=== PATIENT | male | born 1945 | race Caucasian/White ===

== ENCOUNTER 2018-05-10 06:54 | Day surgery (SDC) | payer MEDICARE ==
[~2018-05-10] VITALS: Ht 182.9 cm; Wt 93.7 kg
[~2018-05-10 06:54] MED LIST: AMLO10; AMLO5 PO; Aspir 8181 MG PO; CHOL10002 PO; ENAL20 PO; FISH1000 PO; LOSA25; LOSA25 PO; Multi-Day Vita1 EACH PO; [UNRECOGNIZED DRUG - REMARK]
[2018-05-10] MEDS ORDERED: Lipitor20 MG PO (07:16)
== END 2018-05-10 08:45 | disposition home or self-care (01) ==
LOC: ORSCSDS 06:54
PROVIDERS: Surgery
PROC: 0DJD8ZZ Inspection of Lower Intestinal Tract, Via Natural or Artificial Opening Endoscopic (ICD-10-PCS; principal; 2018-05-10 08:00)
DX: Z86.010 Personal history of colon polyps (principal); K57.30 Diverticulosis of large intestine without perforation or abscess without bleeding; I10 Essential (primary) hypertension; Z87.891 Personal history of nicotine dependence; Z79.899 Other long term (current) drug therapy; Z79.82 Long term (current) use of aspirin
CPT/HCPCS: J0330; J1980; J2405; J7120

== ENCOUNTER 2025-03-24 15:30 | Emergency (ER) | payer MEDICARE ==
[~2025-03-24] VITALS: Ht 182.9 cm; Wt 74.9 kg
[~2025-03-24 15:30] MED LIST changes: +ALBU2.5V5 INH; +AMOCLA875 PO; +ASPI81CH PO; -CHOL10002 PO; +Lipitor20 MG PO; -Multi-Day Vita1 EACH PO; +VISBIOME 112.51 EACH PO; +VITAMIN D31000 UNI1 PO; +Vitamin and Mi1 EACH PO
[2025-03-24 15:59] LABS: BASOPHILS ABSOLUTE AUTO 0.08 K/mm3 (0.00-0.23); BASOPHILS PERCENT AUTO 1 % (0-2); EOSINOPHILS ABSOLUTE AUTO 0.78 K/mm3 (0.00-0.68); EOSINOPHILS PERCENT AUTO 8 % (0-6); Hematocrit 38.8 % (37.0-53.0); IMMATURE GRAN ABSOLUTE AUTO 0.03 K/mm3 (0.00-0.10); IMMATURE GRAN PERCENT AUTO 0 % (0-1); LYMPHOCYTES ABSOLUTE AUTO 1.84 K/mm3 (0.84-5.20); LYMPHOCYTES PERCENT AUTO 19 % (21-46); MONOCYTES ABSOLUTE AUTO 1.05 K/mm3 (0.16-1.47); MONOCYTES PERCENT AUTO 11 % (4-13); Mean Corpuscular HGB 30.9 pg (26.0-34.0); Mean Corpuscular HGB Conc 33.5 g/dL (31.5-36.5); Mean Corpuscular Volume 92 fL (80-100); Mean Platelet Volume 9.6 fL (9.1-12.4); NEUTROPHILS ABSOLUTE AUTO 5.74 K/mm3 (1.96-9.15); NEUTROPHILS PERCENT AUTO 60 % (41-73); Platelet Count 271 K/mm3 (150-400); RDW Coefficient Variation 14.6 % (11.7-14.2); RDW Standard Deviation 49.2 fL (35.1-46.3); Red Blood Cell Count 4.21 M/mm3 (4.30-5.90); White Blood Cell Count 9.52 K/mm3 (4.00-11.30)
[2025-03-24] MEDS ORDERED: Aspirin 325 MG Tab PO ONE (16:20)
[2025-03-24 16:46] LABS: Albumin, Blood 3.2 g/dL (3.4-5.0); Bilirubin, Total 0.3 mg/dL (0.1-1.0); Bun/Creatinine Ratio 31.6 (12.0-20.0); Calcium, Blood 8.6 mg/dL (8.5-10.1); Creatinine, Blood 0.51 mg/dL (0.60-1.20); Globulin, Blood 3.3 g/dL (2.2-4.0); Potassium, Blood 4.5 mmol/L (3.5-5.5); Total Protein, Blood 6.5 g/dL (6.4-8.2)
[2025-03-24] MEDS ORDERED: Tenecteplase 50 MG / Kit IV ONE ×2 (17:25→17:40)
[2025-03-24] MEDS ORDERED: NS 1,000 ML IV SCH (18:05)
[2025-03-24 18:45] VITALS: BP 104/61
== END 2025-03-24 19:18 | disposition short-term general hospital (02) ==
LOC: ER 15:30
PROVIDERS: Student in an Organized Health Care Education/Training Program
DX: I63.9 Cerebral infarction, unspecified (principal); Z88.5 Allergy status to narcotic agent; Z79.82 Long term (current) use of aspirin; Z79.899 Other long term (current) drug therapy; Z79.2 Long term (current) use of antibiotics; Z87.891 Personal history of nicotine dependence
CPT/HCPCS: 70450; 70496; 70498; 71045; 80053; 82947; 85025; 93005; 93010; 96361; 96374; 99285-25; A9270; J3101; J7030; Q9967

== ENCOUNTER 2025-04-11 12:09 | Emergency (ER) | payer MEDICARE ==
[~2025-04-11] VITALS: Ht 182.9 cm; Wt 65.8 kg
[2025-04-11 13:16] VITALS: BP 108/70
== END 2025-04-11 14:10 | disposition home or self-care (01) ==
LOC: ER 12:09
DX: Z46.59 Encounter for fitting and adjustment of other gastrointestinal appliance and device (principal); Z79.899 Other long term (current) drug therapy; Z79.82 Long term (current) use of aspirin; Z87.891 Personal history of nicotine dependence
CPT/HCPCS: 99282

== ENCOUNTER 2025-05-11 16:38 | Inpatient (IN) | payer OTHER, MEDICARE ==
[~2025-05-11] VITALS: Ht 182.9 cm; Wt 76.8 kg
[~2025-05-11 16:38] MED LIST changes: -ASPI81CH PO; +ASPI81CH PT; +ATORVASTATIN CA80 M1 PT; +IPRAT-ALBUT 0.5-3 ML INH; -LOSA25 PO; +LOSA25 PT
[2025-05-11 16:49] LABS: Base Excess Venous 6.8 mmol/L; Bicarbonate Venous 28.2 mmol/L (24.0-30.0)
[2025-05-11] MEDS ORDERED: Acetaminophen650 M1 PT (16:57)
[2025-05-11 16:58] LABS: BASOPHILS ABSOLUTE AUTO 0.13 K/mm3 (0.00-0.23); BASOPHILS PERCENT AUTO 0 % (0-2); EOSINOPHILS PERCENT AUTO 0 % (0-6); Hematocrit 39.7 % (37.0-53.0); Hemoglobin 13.3 g/dL (13.5-17.5); IMMATURE GRAN ABSOLUTE AUTO 0.55 K/mm3 (0.00-0.10); IMMATURE GRAN PERCENT AUTO 1 % (0-1); LYMPHOCYTES ABSOLUTE AUTO 0.34 K/mm3 (0.84-5.20); LYMPHOCYTES PERCENT AUTO 1 % (21-46); MONOCYTES ABSOLUTE AUTO 0.57 K/mm3 (0.16-1.47); MONOCYTES PERCENT AUTO 1 % (4-13); Mean Corpuscular HGB 30.7 pg (26.0-34.0); Mean Corpuscular HGB Conc 33.5 g/dL (31.5-36.5); Mean Corpuscular Volume 92 fL (80-100); Mean Platelet Volume 10.1 fL (9.1-12.4); NEUTROPHILS ABSOLUTE AUTO 47.08 K/mm3 (1.96-9.15); NEUTROPHILS PERCENT AUTO 97 % (41-73); Platelet Count 400 K/mm3 (150-400); RDW Standard Deviation 47.3 fL (35.1-46.3); Red Blood Cell Count 4.33 M/mm3 (4.30-5.90); White Blood Cell Count 48.67 K/mm3 (4.00-11.30)
[2025-05-11] MEDS ORDERED: Acetaminophen650 M1 PR (16:59)
[2025-05-11] MEDS ORDERED: BANATROL PLUS1 EAC1 PT (17:00)
[2025-05-11] MEDS ORDERED: BISA10S PR (17:01)
[2025-05-11] MEDS ORDERED: MIRALAX1714 PT (17:02)
[2025-05-11] MEDS ORDERED: Milk Of Ma400 MG/5 M PT (17:02)
[2025-05-11] MEDS ORDERED: Piperacillin/Tazobactam Sod 4.5 GM in NS 100 ML IV ONE (17:15)
[2025-05-11 17:25] LABS: Albumin, Blood 2.2 g/dL (3.4-5.0); Albumin/Globulin Ratio 0.5 (0.8-1.8); Bilirubin, Total 0.7 mg/dL (0.1-1.0); Bun/Creatinine Ratio 42.1 (12.0-20.0); Calcium, Blood 8.5 mg/dL (8.5-10.1); Creatinine, Blood 0.57 mg/dL (0.60-1.20); Globulin, Blood 4.1 g/dL (2.2-4.0); Potassium, Blood 4.3 mmol/L (3.5-5.5); Total Protein, Blood 6.3 g/dL (6.4-8.2)
[2025-05-11 18:45] LABS: Influenza A, PCR NEGATIVE (NEGATIVE); Influenza B, PCR NEGATIVE (NEGATIVE); Resp Syncytial Virus, PCR NEGATIVE (NEGATIVE); SARS-Cov-2 (COVID-19) PCR, MMC NEGATIVE (NEGATIVE)
[2025-05-11] MEDS ORDERED: Lactated Ringer's 1,000 ML IV SCH (18:55)
[2025-05-11] MEDS ORDERED: Ipratropium/Albuterol SulF 2.5-0.5MG/3 ML Amp INH SCH (18:55)
[2025-05-11] MEDS ORDERED: Lactobacil 2-S.Thermo-Bifido 1 1 Cap PT SCH (21:00)
[2025-05-11 21:56] VITALS: BP 131/71
[2025-05-11 23:38] VITALS: BP 104/56
[2025-05-12 03:59] LABS: Hematocrit 34.4 % (37.0-53.0); Hemoglobin 11.8 g/dL (13.5-17.5); Mean Corpuscular HGB 31.8 pg (26.0-34.0); Mean Corpuscular HGB Conc 34.3 g/dL (31.5-36.5); Mean Corpuscular Volume 93 fL (80-100); Mean Platelet Volume 10.7 fL (9.1-12.4); Platelet Count 284 K/mm3 (150-400); RDW Coefficient Variation 14.2 % (11.7-14.2); RDW Standard Deviation 47.7 fL (35.1-46.3); Red Blood Cell Count 3.71 M/mm3 (4.30-5.90); White Blood Cell Count 43.33 K/mm3 (4.00-11.30)
[2025-05-12 04:21] LABS: Albumin, Blood 1.9 g/dL (3.4-5.0); Albumin/Globulin Ratio 0.5 (0.8-1.8); Bilirubin, Total 0.7 mg/dL (0.1-1.0); Calcium, Blood 8.6 mg/dL (8.5-10.1); Creatinine, Blood 0.58 mg/dL (0.60-1.20); Globulin, Blood 3.6 g/dL (2.2-4.0); Magnesium, Blood 2.1 mg/dL (1.6-2.4); Phosphorus, Blood 3.5 mg/dL (2.5-4.9); Potassium, Blood 4.3 mmol/L (3.5-5.5); Total Protein, Blood 5.5 g/dL (6.4-8.2)
[2025-05-12 04:53] LABS: BAND PERCENT MAN 20 % (0-8); BASOPHILS PERCENT MAN 0 % (0-2); EOSINOPHILS PERCENT MAN 0 % (0-6); MONOCYTES ABSOLUTE MAN 0.86 K/mm3 (0.16-1.47); MONOCYTES PERCENT MAN 2 % (4-13); NEUTROPHILS ABSOLUTE MAN 42.46 K/mm3 (1.96-9.15); SEG NEUTROPHILS PERCENT MAN 78 % (41-73); TOTAL CELLS COUNTED 100
[2025-05-12 05:00] VITALS: BP 119/63
[2025-05-12] MEDS ORDERED: Vancomycin HCL 2,000 MG in NS 500 ML IV ONE (08:10)
[2025-05-12 08:18] VITALS: BP 114/60
[2025-05-12] MEDS ORDERED: Nystatin 100,000 Unit/GM Ointment 15 GM TOP SCH (09:00)
[2025-05-12] MEDS ORDERED: Enoxaparin 40 MG/0.4 ML SYR SC SCH (09:00)
[2025-05-12 11:19] VITALS: BP 119/52
[2025-05-12] MEDS ORDERED: Piperacillin/Tazobactam Sod 4.5 GM in NS 100 ML IV SCH ×2 (15:00)
[2025-05-12 15:36] VITALS: BP 125/57
--- NOTE | 2025-05-12 16:03 | NUR ---
ROUNDED ON PT. HE WAS ASLEEP DRUING MY ROUNDS AND NO FAMILY AT BEDSIDE. REQUEST FROM STAFF FOR CONTINUED EDUCATION OF DISEASE PROCESS AND PROGNOSIS.
[2025-05-12] MEDS ORDERED: Albuterol 2.5 MG/3 ML VIAL INH PRN (17:25)
--- NOTE | 2025-05-12 18:44 | NUR ---
SHIFT SUMMARY: PT SLEEPS OFTEN, WAKES EASILY TO STAFF IN ROOM, WILL ANSWER YES/NO QUESTIONS, ORIENTED TO SELF, COOPERATIVE W/CARE, ASSISTS WITH TURNS, GENERALLY WEAK. PT DENIES SOB, RESPIRATIONS TACHYPNEIC, O2 SATS MAINTAINED >90% ON CPAP OR 6L VIA HFNC. PT DENIES CHEST PAIN, SR ON MONITOR W/RATE MOSTLY 70s-90s. TUBE FEEDINGS ADMINISTERED PER ORDERS, PT TOLERATING WELL. PT HAS BEEN INCONTINENT OF STOOL AND URINE, MALE PUREWICK APPLIED IN ATTEMPT TO KEEP PERIAREA DRY (AREA IS RED, MEDICATED PER ORDERS), ATTENDS IN PLACE. ORAL CARE Q4H, REPOSITIONING Q2H. MEPILEX CHANGED NEEDED TO COCCYX. PT's SPOUSE TO BEDSIDE AND UPDATED ON PT STATUS. IV ABX INFUSING AT THIS TIME.
[2025-05-12 20:00] VITALS: BP 113/57
[2025-05-12] MEDS ORDERED: Vancomycin HCL 1,250 MG in NS 250 ML IV SCH (21:00)
[2025-05-13] VITALS (7 sets, daily range): BP systolic 101–140; BP diastolic 54–104
[2025-05-13] MEDS ORDERED: Piperacillin/Tazobactam Sod 4.5 GM in NS 100 ML IV SCH
[2025-05-13 04:08] LABS: BASOPHILS ABSOLUTE AUTO 0.04 K/mm3 (0.00-0.23); BASOPHILS PERCENT AUTO 0 % (0-2); EOSINOPHILS ABSOLUTE AUTO 0.01 K/mm3 (0.00-0.68); EOSINOPHILS PERCENT AUTO 0 % (0-6); Hematocrit 31.7 % (37.0-53.0); Hemoglobin 10.6 g/dL (13.5-17.5); IMMATURE GRAN ABSOLUTE AUTO 0.21 K/mm3 (0.00-0.10); IMMATURE GRAN PERCENT AUTO 1 % (0-1); LYMPHOCYTES ABSOLUTE AUTO 0.32 K/mm3 (0.84-5.20); LYMPHOCYTES PERCENT AUTO 1 % (21-46); MONOCYTES ABSOLUTE AUTO 0.61 K/mm3 (0.16-1.47); MONOCYTES PERCENT AUTO 2 % (4-13); Mean Corpuscular HGB 31.1 pg (26.0-34.0); Mean Corpuscular HGB Conc 33.4 g/dL (31.5-36.5); Mean Corpuscular Volume 93 fL (80-100); Mean Platelet Volume 10.6 fL (9.1-12.4); NEUTROPHILS ABSOLUTE AUTO 26.65 K/mm3 (1.96-9.15); NEUTROPHILS PERCENT AUTO 96 % (41-73); Platelet Count 279 K/mm3 (150-400); RDW Coefficient Variation 14.2 % (11.7-14.2); RDW Standard Deviation 48.4 fL (35.1-46.3); Red Blood Cell Count 3.41 M/mm3 (4.30-5.90); White Blood Cell Count 27.84 K/mm3 (4.00-11.30)
[2025-05-13 04:26] LABS: Bun/Creatinine Ratio 46.5 (12.0-20.0); Calcium, Blood 8.5 mg/dL (8.5-10.1); Creatinine, Blood 0.56 mg/dL (0.60-1.20); Potassium, Blood 4.3 mmol/L (3.5-5.5)
[2025-05-13 04:30] LABS: BAND PERCENT MAN 2 % (0-8); BASOPHILS PERCENT MAN 0 % (0-2); EOSINOPHILS PERCENT MAN 0 % (0-6); LYMPHOCYTES ABSOLUTE MAN 0.83 K/mm3 (0.84-5.20); LYMPHOCYTES PERCENT MAN 3 % (21-46); MONOCYTES ABSOLUTE MAN 0.83 K/mm3 (0.16-1.47); MONOCYTES PERCENT MAN 3 % (4-13); NEUTROPHILS ABSOLUTE MAN 26.16 K/mm3 (1.96-9.15); SEG NEUTROPHILS PERCENT MAN 92 % (41-73); TOTAL CELLS COUNTED 100
--- NOTE | 2025-05-13 07:28 | NUR ---
NOC SHIFT SUMMARY PRIYANKA IS ORIENTED TO SELF/PLACE AND APHASIC, ANSWERS TO YES AND NO QUESTIONS. AT BEDSIDE AT START OF SHIFT AND IN DISCUSSING DYSPHAGIA REPORTS SHE HAS BEEN GIVING PATIENT ICE CHIPS. EDUCATED ON FULL NPO STATUS AND RISK OF ASPIRATION. POOR UNDERSTANDING OF DYPSHAGIA AND WHAT IT IS. NOTIFIED PROVIDER THIS AM - DR GOLDMAN. ALSO DISCUSSED AFLUTTER -- > SR CONVERSION OVERNIGHT. PUREWIC IN PLACE WITH GOOD URINE OUTPUT. BM X1. INCONTINENT. NO COMPLAINTS OF PAIN. TOELRATED TF X1 WELL.
[2025-05-13] MEDS ORDERED: Atorvastatin 40 MG Tab PT SCH (09:00)
[2025-05-13] MEDS ORDERED: Losartan Potassium 25 MG Tab PO SCH (09:00)
[2025-05-13] MEDS ORDERED: Arginine/Glutamine/Calcium Hmb 1 Packet PT SCH (09:00)
[2025-05-13] MEDS ORDERED: Aspirin 81 MG Chew PT SCH (09:00)
--- NOTE | 2025-05-13 10:26 | NUR ---
AM NOTE: PATIENT ALERT TO SELF AND FRIENDS VISITING THIS MORNING AT BEDSIDE. NODDING HEAD YES AND NO TO QUESTIONS. MOVING ALL EXTREMITIES AND HELPING WITH TURNS IN BED. NOD HEAD NO TO PAIN. PHYSICAL THERAPY IN THIS MORNING. PLAN FOR OCCUPATIONAL THERAPY THIS AFTERNOON. Q2 TURNING AND NEEDED. TELE SHOWING SR WITH 1ST DEGREE HB AND PVC'S. HR 70'S. DENIES CHEST PAIN/PRESSURE/PALPITATIONS. PPP. IV ABX INFUSING PER EMAR. TRACE EDEMA NOTED TO BLE. ON CPAP THIS AM AT 12 AND 30% FIO2. TITRATED TO 6L HIGH FLOW NASAL CANNULA AND SATING 93-96%. COARSE LUNG SOUNDS WITH CONGESTED/LOOSE/MOIST COUGH WITH NO SPUTUM PRODUCTION. SUCTION AT BEDSIDE. Q4 ORAL CARE AND NEEDED. POOR ORAL HEALTH WITH BROKEN/CRACKED/MISSING TEETH. DENTAL HYGENIST ORDERS IN PLACE. STRICT NPO WITH BOLUS TUBE FEEDS. G TUBE IN PLACE AND DRESSING CHANGED THIS MORNING. BOWEL TONES PRESENT THROUGHOUT. ATTENDS IN PLACE. PUREWICK TO SUCTION WITH MIGUEL COLORED URINE. RED/FUNGAL LIKE RASH TO BILATERAL GROIN, SCROTUM, BUTTOCK AND RECTAL AREA. CLEANSED AND NYSTATIN CREAM APPLIED THIS AM. FAMILY FRIENDS AT BEDSIDE THIS AM AND PATIENT OPENS EYES AND SMILES AT VISITORS. PATIENT AWAKE FOR A FEW MINUTES AT A TIME BUT QUICKLY FALLS ASLEEP AFTER CARES. CALL LIGHT IN REACH. DENIES NEEDS AT THIS TIME. DR. GOLDMAN TO BEDSIDE THIS AM, THIS RN PRESENT FOR MD LEA. ORDERS FOR PT/OT. THIS RN DISCUSSED AFLUTTER CONVERSION OVERNIGHT AND PATIENT MENTATION.
[2025-05-13] MEDS ORDERED: ZINC OXIDE/PETROLATUM, YELLOW 1 APPLIC/71 GM PASTE TOP PRN (10:50)
--- NOTE | 2025-05-13 12:04 | NUR ---
AFTERNOON VITALS STABLE. PATIENT GETTING BED BATH AND HAD A 8 BEAT RUN OF VTACH. DR. GOLDMAN UPDATED. NONSYMPTOMATIC. AFTERNOON TUBE FEED INFUSING PER TUBE. PATIENT DENIES PAIN AT THIS TIME. MODERATE SIZE LOOSE BOWEL MOVEMENT. CALL LIGHT IN REACH. SITTING UPRIGHT IN BED WITH LEFT HIP FLOATED.
--- NOTE | 2025-05-13 18:11 | NUR ---
SHIFT SUMMARY: NO ACUTE CHANGES. VITAL SIGNS STABLE. REMAINS ON 6L HIGH FLOW, CPAP AT BEDSIDE. SUCTION FREQUENTLY THROUGHOUT THE DAY WELL FREQUENT ORAL CARE. DENIES PAIN. TUBE FEEDS PER G TUBE WELL WATER FLUSHES. 2 LOOSE BOWEL MOVEMENTS. PUREWICK IN PLACE WITH MIGUEL COLORED URINE. IV ABX INFUSED. JOSELIN TO BEDSIDE AND UPDATED BY THIS RN. Q2 TURNING AND NEEDED. COCCYX DRESSING CHANGED THIS SHIFT. CALL LIGHT IN REACH, DENIES NEEDS AT THIS TIME.
[2025-05-13 20:39] LABS: Vancomycin, Trough 14.9 ug/mL (5.0-10.0)
[2025-05-14] VITALS (7 sets, daily range): BP systolic 108–134; BP diastolic 54–60
[2025-05-14 04:40] LABS: BASOPHILS ABSOLUTE AUTO 0.03 K/mm3 (0.00-0.23); BASOPHILS PERCENT AUTO 0 % (0-2); EOSINOPHILS ABSOLUTE AUTO 0.02 K/mm3 (0.00-0.68); EOSINOPHILS PERCENT AUTO 0 % (0-6); Hematocrit 29.5 % (37.0-53.0); Hemoglobin 9.6 g/dL (13.5-17.5); IMMATURE GRAN ABSOLUTE AUTO 0.12 K/mm3 (0.00-0.10); IMMATURE GRAN PERCENT AUTO 1 % (0-1); LYMPHOCYTES ABSOLUTE AUTO 0.44 K/mm3 (0.84-5.20); LYMPHOCYTES PERCENT AUTO 2 % (21-46); MONOCYTES ABSOLUTE AUTO 0.58 K/mm3 (0.16-1.47); MONOCYTES PERCENT AUTO 3 % (4-13); Mean Corpuscular HGB 30.5 pg (26.0-34.0); Mean Corpuscular HGB Conc 32.5 g/dL (31.5-36.5); Mean Corpuscular Volume 94 fL (80-100); Mean Platelet Volume 10.5 fL (9.1-12.4); NEUTROPHILS ABSOLUTE AUTO 18.35 K/mm3 (1.96-9.15); NEUTROPHILS PERCENT AUTO 94 % (41-73); Platelet Count 275 K/mm3 (150-400); RDW Coefficient Variation 14.5 % (11.7-14.2); Red Blood Cell Count 3.15 M/mm3 (4.30-5.90); White Blood Cell Count 19.54 K/mm3 (4.00-11.30)
[2025-05-14 05:03] LABS: Albumin, Blood 1.6 g/dL (3.4-5.0); Albumin/Globulin Ratio 0.4 (0.8-1.8); Bilirubin, Total 0.5 mg/dL (0.1-1.0); Calcium, Blood 8.7 mg/dL (8.5-10.1); Creatinine, Blood 0.49 mg/dL (0.60-1.20); Globulin, Blood 3.7 g/dL (2.2-4.0); Potassium, Blood 3.9 mmol/L (3.5-5.5); Total Protein, Blood 5.3 g/dL (6.4-8.2)
--- NOTE | 2025-05-14 06:52 | NUR ---
PT STABLE THROUGHOUT THE SHIFT WITH VITAL SIGNS EXCEPT SPO2. PT WOULD ACCIDENTLY DISLODGE TUBE FROM CPAP MASK AND PT WAS DESAT RAPIDLY. PT HAS NO OXYGEN RESERVES AND TAKES AWHILE TO RECOVER. O2 BLEED IN ON CPAP INCREASED TO HELP PATIENT RECOVER. PT TOLERATING IV ABX WELL. PT HAS HAD 2 LARGE INCONTINENT, LOOSE BMS THIS SHIFT REQUIRING FULL LINEN AND BRIEF CHANGES. PT SKIN INTACT BUT CONTINUES TO HAVE RASH IN GROIN. PUREWICK IN PLACE. PT HAS HAD GOOD URINARY OUTPUT THIS SHIFT. PT CONTINUES TO BE ABLE TO ANSWER YES/NO QUESTIONS BY NODDING/SHAKING HEAD. PT AOX2-3.
--- NOTE | 2025-05-14 17:52 | NUR ---
PT SUMMARY; NO ACUTE CHANGE FOR THE SHIFT. PULMONOLOGISTS CONSULTED PER FAMILY'S REQUESTS. VITALS HRR SR WITH FHB AND SOME PVC'S, PT HAD 2 EPISODES OF VTACH, MADE AWARE LABS ORDERED, SATS ABOVE 90% ON 4L OF O2, CPAP AT BEDSIDE IF PT NEEDED FOR SLEEP, SBP 120'S, AFEBRILE, AT THE BEDSIDE AFTER LUNCH TIME AND WAS GIVEN UPDATE REGARDING PT'S STATUS. PT ABLE TO WORK WITH OCCUPATIONAL THERAPY ABLE TO GET UP. 1PA FOR TRANSFERS, PT ABLE TO GET UP IN THE RECLINER WITH NO ISSUES. PT HAD MULTIPLE EPISODES OF LOOSE BM'S, DUE TO FORMULA FEED, BROWN IN COLOR, SOFT LOOSE IN CONSISTENCY. TUBE FEEDING TOLERATED WELL. NO OTHER ISSUES ENCOUNTERED WILL REPORT TO ONCOMING SHIFT
[2025-05-14 19:33] LABS: Bun/Creatinine Ratio 58.5 (12.0-20.0); Calcium, Blood 8.7 mg/dL (8.5-10.1); Creatinine, Blood 0.58 mg/dL (0.60-1.20); Magnesium, Blood 1.9 mg/dL (1.6-2.4); Phosphorus, Blood 3.1 mg/dL (2.5-4.9); Potassium, Blood 3.8 mmol/L (3.5-5.5)
[2025-05-15 04:35] VITALS: BP 144/72
--- NOTE | 2025-05-15 06:32 | NUR ---
PT ESSENTIAL STABLE THROUGHOUT THE SHIFT. PT MENTATION REMAINS STABLE AOX3, ABLE TO ANSWER YES/NO QUESTIONS NODDING AND SHAKING HEAD. VITAL SIGNS STABLE. PT ON 4L O2 NC. PT DID START TO DESAT WHILE SLEEPING AND WAS PLACED ON CPAP AND SATS IMPROVED AGAIN. PT DID HAVE INCONTINENT BOWEL MOVEMENT AND FULL BRIEF/LINEN CHANGE DONE. PUREWICK IN PLACE AND PT HAD GOOD URINARY OUTPUT. URINE REMAINS MIGUEL IN COLOR AND HAZY. PT REPOSITIONED FREQUENTLY. PT DID SIT ON SIDE OF BED ONCE AND SET OFF BED ALARM. BED IN LOWEST POSITION. BED BRAKES AND EXIT ALARM ON. CALL LIGHT AND BEDSIDE TABLE IN REACH. PT TOLERATING IV ABX WELL.
[2025-05-15 07:19] VITALS: BP 149/70
[2025-05-15 08:24] LABS: BASOPHILS ABSOLUTE AUTO 0.03 K/mm3 (0.00-0.23); BASOPHILS PERCENT AUTO 0 % (0-2); EOSINOPHILS ABSOLUTE AUTO 0.18 K/mm3 (0.00-0.68); EOSINOPHILS PERCENT AUTO 2 % (0-6); Hematocrit 28.8 % (37.0-53.0); Hemoglobin 9.5 g/dL (13.5-17.5); IMMATURE GRAN ABSOLUTE AUTO 0.05 K/mm3 (0.00-0.10); IMMATURE GRAN PERCENT AUTO 0 % (0-1); LYMPHOCYTES ABSOLUTE AUTO 0.53 K/mm3 (0.84-5.20); LYMPHOCYTES PERCENT AUTO 5 % (21-46); MONOCYTES ABSOLUTE AUTO 0.64 K/mm3 (0.16-1.47); MONOCYTES PERCENT AUTO 5 % (4-13); Mean Corpuscular HGB 30.5 pg (26.0-34.0); Mean Corpuscular Volume 93 fL (80-100); Mean Platelet Volume 10.1 fL (9.1-12.4); NEUTROPHILS ABSOLUTE AUTO 10.32 K/mm3 (1.96-9.15); NEUTROPHILS PERCENT AUTO 88 % (41-73); Platelet Count 290 K/mm3 (150-400); RDW Coefficient Variation 14.6 % (11.7-14.2); RDW Standard Deviation 49.1 fL (35.1-46.3); Red Blood Cell Count 3.11 M/mm3 (4.30-5.90); White Blood Cell Count 11.75 K/mm3 (4.00-11.30)
[2025-05-15 08:43] LABS: Anion Gap 6 mmol/L (3-11); Blood Urea Nitrogen 29 mg/dL (8-24); CO2, Blood 33 mmol/L (21-32); Calcium, Blood 8.3 mg/dL (8.5-10.1); Chloride, Blood 106 mmol/L (98-108); Creatinine, Blood 0.57 mg/dL (0.60-1.20); Glomerular Filtration Rate 98 (60-); Glucose, Blood 88 mg/dL (70-99); Potassium, Blood 3.9 mmol/L (3.5-5.5); Sodium, Blood 141 mmol/L (136-145); Vancomycin, Trough 13.9 ug/mL (5.0-10.0)
[2025-05-15 11:35] VITALS: BP 129/59
[2025-05-15 16:19] VITALS: BP 120/48
--- NOTE | 2025-05-15 17:47 | NUR ---
PT SUMMARY; NO ACUTE CHANGE FOR THE SHIFT, VITALS HRR SR WITH SOME EPISODES OF CONSISTENT PVC'S 70'S, SBP 120'S, SATS ABOVE 90% ON 4L OF O2 CPAP AT THE BEDSIDE WHEN HE'S SLEEPING, AFEBRILE. TUBE FEEDING QID PER ORDERS TOLERATED WELL, SPOKE TO TOUCH UP CARVER ABOUT 'S CONCERN WITH THE FORMULA THAT CAUSES LOOSE BM'S NO NEW ORDERS AT THIS TIME. PT ABLE TO PARTICIPATE WITH PT/OT THIS SHIFT PT WAS UP IN THE RECLINER AFTER LUNCH TIME. NOTICED STAGE 2 PRESSURE ULCER WAS GETTING BIGGER NEW PHOTOS IN CHART FAMILY MADE AWARE. INFLATABLE AIR MATTRESS IN PLACE. PT REPOSITIONE Q2 HRS . BARRIER CREAM APPLIED AROUND THE AREA NYSTAIN OINTMENT ON GROIN. PALLIATIVE CARE NURSE AND DR ENGLISH WAS IN THE ROOM WITH THE FAMILY TO TALK ABOUT PLAN OF CARE, ABOUT HOSPICE AND POSSIBLE TRACHEOSTOMY. FAMILY IS STILL NEEDING SOME TIME TO DECIDE AND IS ACTUALLY REQUESTING ANOTHER PULMONOLIGIST FOR A SECOND OPINION, DR GOLDMAN MADE AWARE AND RECOMMENDED THAT IT COULD HAPPEN OUTPATIENT. PT RESTING AT THIS TIME, ORAL CARE PROVIDED Q4HRS AND FREQUENT SUCTIONING. NO OTHER ISSUES REPORTED BED ALARM IN PLACE CALL LIGHTS IN REACH WILL REPORT TO ONCOMING SHIFT
--- NOTE | 2025-05-15 18:12 | NUR ---
MET WITH PT, JOSELIN AND ADULT DAUGHTER ALONG WITH DR. ENGLISH, WHO DISCUSSED TRACH WITH THEM, INCLUDING DISCUSSION OF RISKS AND BENEFITS. PT HAS HX OF DEMENTIA X'S 10 YEARS AND HAS BEGUN ASPIRATING REGULARLY. HE ALREADY HAS A PEG TUBE IN PLACE FOR THIS REASON. DR. ENGLISH STATED IT WAS GOING TO EITHER BE TRACH, OR HOSPICE. AFTER THE DISCUSSION, JOSELIN BEGAN TO CRY. SHE PLANS TO DISCUSS WITH BOTH DAUGHTERS WELL THE PATIENT, AND WE WILL MEET AGAIN TOMORROW.
[2025-05-15 20:10] VITALS: BP 139/60
[2025-05-16 00:02] VITALS: BP 128/65
[2025-05-16 04:17] VITALS: BP 157/86
[2025-05-16 04:32] LABS: BASOPHILS ABSOLUTE AUTO 0.04 K/mm3 (0.00-0.23); BASOPHILS PERCENT AUTO 0 % (0-2); EOSINOPHILS ABSOLUTE AUTO 0.53 K/mm3 (0.00-0.68); EOSINOPHILS PERCENT AUTO 4 % (0-6); Hematocrit 30.4 % (37.0-53.0); Hemoglobin 9.7 g/dL (13.5-17.5); IMMATURE GRAN ABSOLUTE AUTO 0.08 K/mm3 (0.00-0.10); IMMATURE GRAN PERCENT AUTO 1 % (0-1); LYMPHOCYTES PERCENT AUTO 4 % (21-46); MONOCYTES ABSOLUTE AUTO 0.69 K/mm3 (0.16-1.47); MONOCYTES PERCENT AUTO 6 % (4-13); Mean Corpuscular HGB 30.1 pg (26.0-34.0); Mean Corpuscular HGB Conc 31.9 g/dL (31.5-36.5); Mean Corpuscular Volume 94 fL (80-100); Mean Platelet Volume 10.4 fL (9.1-12.4); NEUTROPHILS ABSOLUTE AUTO 10.56 K/mm3 (1.96-9.15); NEUTROPHILS PERCENT AUTO 85 % (41-73); Platelet Count 310 K/mm3 (150-400); RDW Coefficient Variation 14.5 % (11.7-14.2); RDW Standard Deviation 49.8 fL (35.1-46.3); Red Blood Cell Count 3.22 M/mm3 (4.30-5.90)
[2025-05-16 04:57] LABS: Bun/Creatinine Ratio 58.2 (12.0-20.0); Calcium, Blood 8.4 mg/dL (8.5-10.1); Creatinine, Blood 0.48 mg/dL (0.60-1.20)
--- NOTE | 2025-05-16 06:15 | NUR ---
PT STABLE THROUGHOUT THE SHIFT, NO SIGNIFICANT EVENTS. PT REMAINS AOX2-3 BUT IS ABLE TO MAKE NEEDS KNOWN AND ANSWER YES/NO QUESTIONS. PT ON 4L O2 BY NC UNLESS SLEEPING AND THEN IS ON CPAP WITH 6L BLEED IN, SATS >92%. PT CONTINUES TO BE INCONTINENT OF BOTH BOWEL AND BLADDER. FULL LINEN/BRIEF CHANGES DARLENE THIS SHIFT. ORAL CARE PERFORMED Q4, THICK, TENACIOUS SECRETIONS REMOVED BY BOTH SWAB AND SUCTIONING. BED ALARM ON, CALL LIGHT IN REACH. BED IN LOWEST POSITION, BRAKES ON, UPPER SIDE RAILS UP. PT TOLERATING CPAP WELL, GEL NASAL PAD IN PLACE. PT CONTINUES TO HAVE INCREASED ECTOPY, ELECTROLYTES WNL.
[2025-05-16 07:39] VITALS: BP 139/55
[2025-05-16 15:48] VITALS: BP 140/72
--- NOTE | 2025-05-16 18:07 | NUR ---
PT SUMMARY; NO ACUTE CHANGE FOR THE SHIFT, PT TRANSITIONED TO MEDICAL STATUS NO TELE. VITALS REMAINED STABLE. TUBE FEEDING BOLUS TOLERATING WELL, STILL HS LOOSE BMS. NO FAMILY CAME BY TO VISIT TODAY. PALLIATIVE CARE CARE ABLE TO UPDATE THIS RN REGARDING FAMILY'S CURRENT WISHES THE OTHER DAUGHTER DOES NOT WANT TO PURSUE TRACH PLACEMENT AWAITING FOR CONFIRMATION IN AM, FOR POSSIBLE DC TO REHAB. PT REFUSED TO GET OUT OF BED WHEN ASKED MULTIPLE TIMES FOR THE SHIFT, PT HAS BEEN ASLEEP MOST OF THE TIME BUT IS ABLE TO MOVE INDEPENDENTLY IN BED AND IS ABLE TO WAKE UP WITH VERBAL STIMULI. REMAINED ON 4L OF O2, CPAP NEEDED. PUREWICK IN PLACE. NO OTHER ISSUES ENCOUNTERED WILL REPORT TO ONCOMING SHIFT
[2025-05-16 21:50] VITALS: BP 121/57
[2025-05-16] MEDS ORDERED: NS 250 ML IV PRN (22:00)
[2025-05-16 23:09] VITALS: BP 148/58
--- NOTE | 2025-05-16 23:51 | NUR ---
SHIFT SUMMARY NO ACUTE CHANGES. IV TUBING AND TUBE FEEDING SET CHANGES AND LABELED. PUREWICK IN PLACE. PT REFUSED CPAP AT MIDNIGHT. Q2 TURNS
[2025-05-17 04:57] LABS: BASOPHILS ABSOLUTE AUTO 0.03 K/mm3 (0.00-0.23); BASOPHILS PERCENT AUTO 0 % (0-2); EOSINOPHILS ABSOLUTE AUTO 0.68 K/mm3 (0.00-0.68); EOSINOPHILS PERCENT AUTO 6 % (0-6); Hematocrit 28.3 % (37.0-53.0); IMMATURE GRAN PERCENT AUTO 1 % (0-1); LYMPHOCYTES PERCENT AUTO 5 % (21-46); MONOCYTES ABSOLUTE AUTO 0.67 K/mm3 (0.16-1.47); MONOCYTES PERCENT AUTO 6 % (4-13); Mean Corpuscular HGB 30.4 pg (26.0-34.0); Mean Corpuscular HGB Conc 31.8 g/dL (31.5-36.5); Mean Corpuscular Volume 96 fL (80-100); Mean Platelet Volume 10.7 fL (9.1-12.4); NEUTROPHILS ABSOLUTE AUTO 8.84 K/mm3 (1.96-9.15); NEUTROPHILS PERCENT AUTO 82 % (41-73); Platelet Count 334 K/mm3 (150-400); RDW Coefficient Variation 14.6 % (11.7-14.2); RDW Standard Deviation 50.4 fL (35.1-46.3); Red Blood Cell Count 2.96 M/mm3 (4.30-5.90); White Blood Cell Count 10.82 K/mm3 (4.00-11.30)
[2025-05-17 05:35] LABS: Albumin, Blood 1.6 g/dL (3.4-5.0); Albumin/Globulin Ratio 0.4 (0.8-1.8); Bilirubin, Total 0.4 mg/dL (0.1-1.0); Bun/Creatinine Ratio 51.1 (12.0-20.0); Calcium, Blood 8.3 mg/dL (8.5-10.1); Creatinine, Blood 0.53 mg/dL (0.60-1.20); Globulin, Blood 3.9 g/dL (2.2-4.0); Potassium, Blood 4.1 mmol/L (3.5-5.5); Total Protein, Blood 5.5 g/dL (6.4-8.2)
[2025-05-17 08:09] VITALS: BP 137/71
[2025-05-17] MEDS ORDERED: Banana Flakes/Tos 1 EA Powder Pack PO SCH (09:00)
--- NOTE | 2025-05-17 09:15 | NUR ---
CALL TO DR. GOLDMAN. PT HAD EXTENDED RUN OF PVCs ON TELE. ORDERED MAGNESIUM AND PHOSPHOROUS DRAWS. ORDERS INPUT.
[2025-05-17 09:41] LABS: Magnesium, Blood 1.9 mg/dL (1.6-2.4); Phosphorus, Blood 3.2 mg/dL (2.5-4.9)
[2025-05-17 16:38] VITALS: BP 130/95
--- NOTE | 2025-05-17 16:48 | NUR ---
SHIFT SUMMARY. SHIFT HAS BEEN MOSTLY UNREMARKABLE, PT CONDITION UNCHANGED THROUGHOUT SHIFT. HAVE BEEN ABLE TO TITRATE SUPPLEMENTAL O2 DOWN TO 3 L VIA NC THROUGHOUT SHIFT DESPITE NEEDING MUCH 5 L OVERNIGHT PER HYPERBARIC TECH RN. PT HAS NOT APPEARED TO EXPERIENCE ACUTE PAIN THUS FAR AND HAS BEEN ABLE TO REST COMFORTABLY THROUGHOUT SHIFT. BOLUS FEEDINGS QID, THIRD OF DAY RUNNING NOW. Q2 HOUR REPOSITIONING. PT CONTINUES TO HAVE LOOSE, URGENT BM AFTER TUBE FEEDINGS ALTHOUGH THEY APPEAR TO BE LESS FREQUENT THAN IN PAST, POSSIBLY IN RELATION TO NEWLY ORDERED BANANA FLAKES. ABX ADMINISTERED ON TIME AND WITHOUT DIFFICULTY. PUREWICK IN PLACE THROUGHOUT SHIFT, WORKING INTENDED. SHIFT OTHERWISE UNREMARKABLE. BED LOCKED IN LOWEST POSITION. CALL LIGHT LEFT WITHIN REACH. BED ALARM ACTIVE. CONTINUING TO MONITOR.
[2025-05-17 21:18] VITALS: BP 139/69
[2025-05-17 23:36] VITALS: BP 139/61
--- NOTE | 2025-05-18 00:24 | NUR ---
SHIFT SUMMARY- NO ACUTE CHANGES PT REMAINS ON 5LNC, REFUSING BIPAP X2 NIGHTS IN A ROW. BM IS THICKENING AFTER STARTING BANATROL.
[2025-05-18 07:54] VITALS: BP 159/71
[2025-05-18 10:44] LABS: BASOPHILS ABSOLUTE AUTO 0.05 K/mm3 (0.00-0.23); BASOPHILS PERCENT AUTO 1 % (0-2); EOSINOPHILS ABSOLUTE AUTO 0.47 K/mm3 (0.00-0.68); EOSINOPHILS PERCENT AUTO 5 % (0-6); Hematocrit 28.4 % (37.0-53.0); Hemoglobin 9.1 g/dL (13.5-17.5); IMMATURE GRAN ABSOLUTE AUTO 0.09 K/mm3 (0.00-0.10); IMMATURE GRAN PERCENT AUTO 1 % (0-1); LYMPHOCYTES ABSOLUTE AUTO 0.61 K/mm3 (0.84-5.20); LYMPHOCYTES PERCENT AUTO 6 % (21-46); MONOCYTES ABSOLUTE AUTO 0.42 K/mm3 (0.16-1.47); MONOCYTES PERCENT AUTO 4 % (4-13); Mean Corpuscular HGB 30.5 pg (26.0-34.0); Mean Corpuscular Volume 95 fL (80-100); Mean Platelet Volume 10.1 fL (9.1-12.4); NEUTROPHILS ABSOLUTE AUTO 7.95 K/mm3 (1.96-9.15); NEUTROPHILS PERCENT AUTO 83 % (41-73); Platelet Count 273 K/mm3 (150-400); RDW Coefficient Variation 14.6 % (11.7-14.2); RDW Standard Deviation 50.4 fL (35.1-46.3); Red Blood Cell Count 2.98 M/mm3 (4.30-5.90); White Blood Cell Count 9.59 K/mm3 (4.00-11.30)
[2025-05-18 11:12] LABS: Bun/Creatinine Ratio 50.9 (12.0-20.0); Calcium, Blood 8.2 mg/dL (8.5-10.1); Creatinine, Blood 0.51 mg/dL (0.60-1.20)
[2025-05-18 15:54] VITALS: BP 151/61
[2025-05-18 16:01] VITALS: BP 151/61
--- NOTE | 2025-05-18 16:41 | NUR ---
SHIFT SUMMARY. SHIFT HAS BEEN UNREMARKABLE. PT REMAINS NON VERBAL BUT ABLE TO FOLLOW COMMANDS APPROPRIATELY. HAS AT NO POINT DURING SHIFT APPEARED IN PAIN, DENIES ANY ACUTE PAIN. REPOSITIONED Q2. O2 DEMANDS HAVE SOMEWHAT FLUCTUATED BETWEEN 3-6 L O2 VIA MASK. VITALS STABLE. ABX ADMINISTERED ON TIME AND WITHOUT DIFFICULTY. BOLUS FEEDINGS QID, 3 DELIVERED THUS FAR. BLOOD SUGAR HAS BEEN STABLE. HAS NOT GOTTEN OUT OF BED TODAY, HAS BEEN VERY SOMNOLENT THROUGHOUT SHIFT. BED LOCKED IN LOWEST POSITION. CALL LIGHT LEFT WITHIN REACH. CONTINUING TO MONITOR.
--- NOTE | 2025-05-18 19:40 | NUR ---
ASSUMPTION OF CARE REPORT RECIEVED AT BEDSIDE FROM DAY SHIFT RN. PT RESTING IN ROOM AT THIS TIME. NO COMPLAINTS STATED AFTER BEING ASKED YES NO QUESTIONS. WILL CONTINUE TO ASSESS AND MONITOR.
[2025-05-18 20:00] VITALS: BP 132/58
[2025-05-18 21:43] VITALS: BP 132/58
[2025-05-19] VITALS: BP 118/51
[2025-05-19 04:00] VITALS: BP 137/68
[2025-05-19 04:49] LABS: BASOPHILS ABSOLUTE AUTO 0.06 K/mm3 (0.00-0.23); BASOPHILS PERCENT AUTO 1 % (0-2); EOSINOPHILS ABSOLUTE AUTO 0.67 K/mm3 (0.00-0.68); EOSINOPHILS PERCENT AUTO 7 % (0-6); Hematocrit 28.5 % (37.0-53.0); Hemoglobin 9.2 g/dL (13.5-17.5); IMMATURE GRAN PERCENT AUTO 1 % (0-1); LYMPHOCYTES ABSOLUTE AUTO 0.65 K/mm3 (0.84-5.20); LYMPHOCYTES PERCENT AUTO 6 % (21-46); MONOCYTES PERCENT AUTO 5 % (4-13); Mean Corpuscular HGB 30.5 pg (26.0-34.0); Mean Corpuscular HGB Conc 32.3 g/dL (31.5-36.5); Mean Corpuscular Volume 94 fL (80-100); Mean Platelet Volume 10.3 fL (9.1-12.4); NEUTROPHILS ABSOLUTE AUTO 8.38 K/mm3 (1.96-9.15); NEUTROPHILS PERCENT AUTO 81 % (41-73); Platelet Count 281 K/mm3 (150-400); RDW Coefficient Variation 14.6 % (11.7-14.2); RDW Standard Deviation 50.3 fL (35.1-46.3); Red Blood Cell Count 3.02 M/mm3 (4.30-5.90); White Blood Cell Count 10.36 K/mm3 (4.00-11.30)
[2025-05-19 05:19] LABS: Bun/Creatinine Ratio 56.9 (12.0-20.0); Calcium, Blood 8.1 mg/dL (8.5-10.1); Creatinine, Blood 0.49 mg/dL (0.60-1.20); Potassium, Blood 4.3 mmol/L (3.5-5.5)
--- NOTE | 2025-05-19 06:28 | NUR ---
SHIFT SUMMARY PT HAS TOLERATED SHIFT WELL WITH NO SIGNIFICANT EVENTS OVERNIGHT. PT WAS ABLE TO TOLERATE CPAP THROUGH NIGHT. PT ABLE TO ANSWER YES NO QUESTIONS BY SHAKING OR NODDING HEAD. PT HAS NO COMPLAINTS OF PAIN AT THIS TIME. PT APPEARS TO BE RESTING COMFORTABLY IN ROOM. WILL CONTINUE TO MONITOR UNTIL REPORT PASSED TO DAY SHIFT TEAM.
[2025-05-19 08:41] VITALS: BP 137/91
--- NOTE | 2025-05-19 16:27 | NUR ---
SHIFT SUMMARY: PT SLEEPS OFTEN, ALERT TO STAFF IN ROOM, COOPERATIVE W/CARE, ANSWERS QUESTIONS BY NODDING/SHAKING HEAD OR W/MUMBLED SPEECH. PT TOLERATED CPAP OVER NIGHT FOR SLEEP, O2 SATS MAINTAINED >925 ON 5 L/MIN NC. PT DENIES CP, SR ON MONITOR, RATE 70s. BOLUS FEEDS ADMINISTERED PER ORDERS, PT TOLERATING WELL, BLOOD GLUCOSE CHECKS ACHS. ORAL CARE Q4H, DENTAL HYGIENIST CONTACTED TODAY AND TO BEDSIDE AFTER THIS RN ATTEMPTED TO REMOVE ORAL CASTS T/OUT THE MOUTH, GABRIELLE Hayes TO BEDSIDE AND PROVIDED EDUCATION TO PT's SPOUSE RE: NEED FOR DENTAL APPT FOLLOW-UP. PT OOB TODAY W/PT, SPENT SOME TIME IN RECLINER THEN ASSISTED BACK TO BED W/GAIT BELT AND FWW. PT HAS BEEN ASSISTING W/TURNS, ATTENDS CHECKED FREQUENTLY AND CHANGED NEEDED. PT RESTING QUIETLY IN ROOM, W/CALL LIGHT IN REACH.
[2025-05-19 21:14] VITALS: BP 163/93
[2025-05-20 03:16] VITALS: BP 155/70
[2025-05-20 03:45] LABS: BASOPHILS ABSOLUTE AUTO 0.06 K/mm3 (0.00-0.23); BASOPHILS PERCENT AUTO 1 % (0-2); EOSINOPHILS ABSOLUTE AUTO 0.55 K/mm3 (0.00-0.68); EOSINOPHILS PERCENT AUTO 5 % (0-6); Hematocrit 30.4 % (37.0-53.0); Hemoglobin 9.7 g/dL (13.5-17.5); IMMATURE GRAN PERCENT AUTO 1 % (0-1); LYMPHOCYTES ABSOLUTE AUTO 0.77 K/mm3 (0.84-5.20); LYMPHOCYTES PERCENT AUTO 7 % (21-46); MONOCYTES ABSOLUTE AUTO 0.48 K/mm3 (0.16-1.47); MONOCYTES PERCENT AUTO 5 % (4-13); Mean Corpuscular HGB 30.3 pg (26.0-34.0); Mean Corpuscular HGB Conc 31.9 g/dL (31.5-36.5); Mean Corpuscular Volume 95 fL (80-100); NEUTROPHILS ABSOLUTE AUTO 8.61 K/mm3 (1.96-9.15); NEUTROPHILS PERCENT AUTO 82 % (41-73); Platelet Count 262 K/mm3 (150-400); RDW Coefficient Variation 14.5 % (11.7-14.2); RDW Standard Deviation 49.8 fL (35.1-46.3); White Blood Cell Count 10.57 K/mm3 (4.00-11.30)
[2025-05-20 04:02] LABS: Bun/Creatinine Ratio 54.1 (12.0-20.0); Calcium, Blood 8.3 mg/dL (8.5-10.1); Creatinine, Blood 0.56 mg/dL (0.60-1.20); Potassium, Blood 4.2 mmol/L (3.5-5.5)
--- NOTE | 2025-05-20 05:10 | NUR ---
SHIFT SUMMARY PATIENT ALERT AND ORIENTED X2. HAD NO COMPLAINTS OF PAIN OR SHORTNESS OF BREATH. ON 5 LITERS O2 VIA NC WHILE AWAKE, CPAP AT NIGHT. VITAL SIGNS STABLE. NO ACUTE ISSUES NOTED OVERNIGHT. WILL CONTINUE TO MONITOR. CALL LIGHT WITHIN REACH.
[2025-05-20 07:41] VITALS: BP 169/67
[2025-05-20 12:28] VITALS: BP 133/60
--- NOTE | 2025-05-20 15:42 | NUR ---
SUPPORTIVE VISIT WITH PT, SPOUSE AND DTR PURNIMA (VIA SPEAKER PHONE) THIS AFTERNOON. PT WAKES WHEN SPOKEN TO. HOWEVER HE IS WITHDRAWN. THERAPUTIC LISTENING PROVIDED FOR SPOUSE, JOSELIN. SHE TALKS OF THEIR 50+ YEARS OF MARRIAGE AND PRIYANKA BEING ONE OF A KIND. "HE HAS NEVER BEEN ONE TO GIVE UP." SHE REPORTS REMAINING HOPEFUL THAT HE WILL PARTICIPATE IN THERAPY AT [facility]. JOSELIN HAS WORKED CLOSELY WITH [facility]ALL[facility]ARE TEAM FOR THE LAST COUPLE OF YEARS. JOSELIN ASKED THIS PC RN TO CALL [facility] INPREPERATION FOR HOSPICE IF PRIYANKA DOES NOT PARTICIPATE IN THERAPY OR CARES. MAYRA LEFT FOR GONZALO AT THE CO TO CALL FOR UPDATE ON PRIYANKA. PC TO FOLLOW UP WITH PT, FAMILY, CM AND [facility] TOMORROW 05/21/25. UPDATE PROVIDED TO PRIMARY RN, LABEL PRINTER AND CM.
[2025-05-20 15:44] VITALS: BP 130/63
--- NOTE | 2025-05-20 16:12 | NUR ---
PT TRANSFERRED TO ROOM 304 AFTER REPORT WAS GIVEN TO NURSE. HE WAS TRANSPORTED BY BED W/ ALL PERSONAL BELONGINGS.
--- NOTE | 2025-05-20 16:23 | NUR ---
PT CAME FROM PCU. THIS NURSE AGREES WITH PRIOR ASSESSMENT. PT RESTING COMFORTABLY.
--- NOTE | 2025-05-20 16:39 | NUR ---
TRANSFER FROM PCU 8. 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 SKIN ASSESSED. BRUISING. PEG TUBE TO LUG, STAGE 2 TO COCCYX. YEAST/REDNESS TO PERIAREA. CONT PULSE OX CONNECTED. SCD PUMP PLACED ON BED. PT NONBERVAL SINCE STROKE PER . CAN NOD YES OR NO. HARD OF HEARING.
--- NOTE | 2025-05-20 17:51 | NUR ---
REQUESTED TUBE FEED FOR BOLUS THIS EVEING. NONE AT BEDSIDE OR IN NUTRITION ROOM.
--- NOTE | 2025-05-20 18:45 | NUR ---
TUBE FEEDING JUST SENT UP AT SHIFT CHANGE
[2025-05-20 20:13] VITALS: BP 132/78
[2025-05-21 00:57] VITALS: BP 147/80
--- NOTE | 2025-05-21 03:52 | NUR ---
SHIFT SUMMARY PATIENT APPEARS TO BE SLEEPING COMFORTABLY AT THIS TIME. SPEARER IS IN PLACE AND 02 SATURATIONS ARE ABOVE 92 %. PATIENT HAS A SIMPLE FACE MASK IN PLACE TO KEEP 02 SATURATIONS ABOVE 92 %. PATIENT HAS A PUREWICK IN PLACE AND IT IS WORKING WELL. BED ALARM IS ON, CALL LIGHT WITHIN REACH. SAFETY PRECAUTIONS ARE BEING MAINTAINED.
[2025-05-21 04:38] VITALS: BP 130/98
[2025-05-21 07:33] VITALS: BP 142/67
[2025-05-21] MEDS ORDERED: Acetaminophen 650 MG Supp PR PRN (12:20)
[2025-05-21] MEDS ORDERED: Scopolamine Hydrobromide Patch TOP PRN (12:20)
[2025-05-21] MEDS ORDERED: Atropine Sulfate 1% Opth Soln 2ML BTL SL PRN (12:20)
[2025-05-21] MEDS ORDERED: Promethazine HCl 25 MG Supp PR PRN (12:20)
[2025-05-21] MEDS ORDERED: Morphine Sulfate 20 MG/1ML 1 ML Oral Syringe SL PRN (12:25)
[2025-05-21] MEDS ORDERED: LORazepam 0.5 MG Tab PO PRN (12:30)
--- NOTE | 2025-05-21 12:36 | NUR ---
STATUS CHANGE TO COMFORT CARE PT CONTINUES TO PHYSICALLY, MENTALLY DECLINE OVER THE LAST COUPLE OF DAYS. OXYGEN DEMAND HAS INCREASED FROM O2 VIA NC TO MASK. , JOSELIN IS IN AGREEMENT TO START COMFORT CARE TODAY [facility] IF HE IS MEDICALLY STABLE. SHE EXPRESSED CONCERN OF OVER MEDICATION WITH ROXANOL OR ATIVAN. ADVISED JOSELIN MEDICAL STAFF IS TRAINED TO START WITH THE LOWEST DOSES OF RX AND WILL ONLY ADVANCE DOSES HIS MEDICAL NEEDS CHANGE. SPOKE WITH PT'S DTRS VIA PHONE WITH MEDICAL UPDATE PER REQUEST. DTRS WILL BE DRIVING FROM [facility], ETA IS SOMETIME TOMORROW. CM AND BEDSIDE RN UPDATED. ORDERS OBTAINED FROM PROVIDER FOR COMFORT CARE. PC TO REMAIN AVAILABLE NEEDED.
--- NOTE | 2025-05-21 17:31 | NUR ---
SHIFT SUMMARY PT AOX3/4, COOPERATIVE, ABLE TO MAKE NEEDS KNOWN. PT HAS BEEN BEDREST ALL SHIFT. STATUS CHANGED TO COMFORT CARE STATUS WHILE INPATIENT. SUPPOSED TO DC TO [facility] ON HOSPICE I BELIEVE. JHA CATHETER PLACED FOR END OF LIFE, TOLERATED WELL. PT NPO, TOLERATING PEG TUBE FEEDS 4X DAILY, 420ML WITH 100ML FLUSH PRE AND POST. COMFORT CARE MEDS PLACED. BED IN LOWEST POSITION, CALL LIGHT WITHIN REACH.
--- NOTE | 2025-05-22 06:11 | NUR ---
SHIFT SUMMARY PT HAS BEEN RESTING IN BED COMFORTABLY OVERNIGHT. HE HAS BEEN COMFORT CARE. HE HAS BEEN RESPOSIVE TO VOICE THROUGHOUT NIGHT. PT HAS BEEN ON 6L OXYMASK. HE HAS PEG TUBE WITH BOLUS FEEDINGS. PT HAS TOLERATED FEEDING. PT HAS JHA CATHETER, PATENT AND DRAINING BY GRAVITY. PT HAS BEEN BEDREST, REPOSITIONING IN BED BY HIMSELF. PT HAS HAD NO COMPLAINTS OVERNIGHT.
--- NOTE | 2025-05-22 09:30 | NUR ---
COMFORT CARE SUPPORTIVE VISIT THIS MORNING. PRIYANKA WAKES TO HIS NAME. ABLE TO MUTTER YES/NO. DENIES PAIN. ACCESSORY MUSCLE USE WITH RESPIRATIONS, EVEN RISE AND FALL. REVIEWED CARE PLAN WITH BEDSIDE RN. PLAN IS FOR 5 MG OF ROXANOL TO BE GIVEN S/P ORAL CARE. PC TO REMAIN AVAILABLE NEEDED. UPDATE PROVIDED TO CM WHOM REPORTS THERE IS NOT A AGENCY ABLE TO ADMIT TO HOSPICE TODAY.
--- NOTE | 2025-05-22 17:03 | NUR ---
CALLED TO PT'S ROOM BY SPIRITUAL CARE IS DISPLAYING SIGNS OF AGGITATION. BEDSIDE RN REPORTS WAS YELLING AND THREW A BOX OF KLEENEX OUT INTO THE HALLWAY. PT'S SPOUSE, DTR, JEFFREY AND TWO GRANDCHILDREN AT BEDSIDE. PT ALERT UPON THIS PC RN ENTERING ROOM. HE APPEARS TO BE SLEEPING WHEN NOT STIMULATED. THIS PC RN EVALUATED PT FOR COMFORT. PT DENIES PAIN/SOB. WET COUGH WITH THICK MONROY STRINGY MUCUS. PT NOT ABLE TO CLEAR MUCUS ON HIS OWN, SUCTION PROVIDED. EDUCATION FOR FAMILY ON CARES BEING PROVIDED. REVIEWED MEDICATIONS, DOSE AND FREQUENCY WITH SPOUSE. AT END OF VISIT, PT RESPIRATIONS BECAME LABORED WITH APNIC PAUSES. EDUCATED ON ROXANOL TO BE ADMINISTERED AND THE ANTICIPATED OUTCOME OF DECREASED WORK OF BREATHING AND BETTER OXYGEN EXCHANGE. O2 MASK REMAINS IN PLACE. THERAPUTIC LISTING PROVIDED. EDUCATED ON THE IMPORTANCE OF BEING KIND AND RESPECTFUL OF CARE TEAM. THROWING OF ITEMS WILL NOT BE TOLERATED. APOLOGIZED FOR HER ACTIONS AND REASSURED THIS PC RN, SHE WILL TREAT CARE TEAM WITH RESPECT. HAS A GREAT DEAL OF ANTICIPATORY GREIF AND ANGER. SHE REPORTS FRUSTRATION WITH HER HEALTH/PHYSICAL LIMITATIONS AND HER FEELINGS OF HELPLESSNESS AT THIS TIME. ENCOURAGED TO TALK TO PT. PLAN: MSG SENT TO [facility] ASKING FOR THEM TO CALL WITH AN UPDATE ON D/C PLAN TOMORROW MORNING. PC TO REMAIN AVAILABLE NEEDED.
[2025-05-23] MEDS ORDERED: ATROPINE S0.4 MG/1 M (13:01)
[2025-05-23] MEDS ORDERED: LORA.5 PO (13:02)
[2025-05-23] MEDS ORDERED: MORP20L PO (13:03)
[2025-05-23] MEDS ORDERED: TRANSDERM-SCOP1 EA13 TD (13:04)
--- NOTE | 2025-05-23 13:55 | NUR ---
CALLED AND GAVE REPORT TO [facility]. PATIENT DISCHARGED AT 1329. [facility] REQUESTED POLST AND MED REC TO BE FAXED. FAX SENT AND COMPLETED.
== END 2025-05-23 13:29 | disposition hospice, inpatient (51) | DRG 871 ==
LOC: ER 16:38 → MEDS 18:54 → PCU 18:54 → MEDS 05-20 15:40 → ENPENDDIS 05-21 12:32 → MEDS 05-21 12:34
PROVIDERS: Emergency Medicine; Family Medicine; Internal Medicine; ADMIT Internal Medicine
PROC: 5A09457 Assistance with Respiratory Ventilation, 24-96 Consecutive Hours, Continuous Positive Airway Pressure (ICD-10-PCS; principal; 2025-05-14)
PROC: 3E03329 Introduction of Other Anti-infective into Peripheral Vein, Percutaneous Approach (ICD-10-PCS; 2025-05-16)
PROC: 5A0945A Assistance with Respiratory Ventilation, 24-96 Consecutive Hours, High Flow/Velocity Cannula (ICD-10-PCS; 2025-05-16)
DX: A41.9 Sepsis, unspecified organism (principal); J18.9 Pneumonia, unspecified organism; J69.0 Pneumonitis due to inhalation of food and vomit; J96.21 Acute and chronic respiratory failure with hypoxia; J44.0 Chronic obstructive pulmonary disease with (acute) lower respiratory infection; Z51.5 Encounter for palliative care; Z66 Do not resuscitate; Z74.01 Bed confinement status; I10 Essential (primary) hypertension; E78.5 Hyperlipidemia, unspecified; I69.322 Dysarthria following cerebral infarction; G47.33 Obstructive sleep apnea (adult) (pediatric); J43.2 Centrilobular emphysema; R54 Age-related physical debility; I70.201 Unspecified atherosclerosis of native arteries of extremities, right leg; G30.9 Alzheimer's disease, unspecified; R65.20 Severe sepsis without septic shock; F02.C0 Dementia in other diseases classified elsewhere, severe, without behavioral disturbance, psychotic disturbance, mood disturbance, and anxiety; F01.C0 Vascular dementia, severe, without behavioral disturbance, psychotic disturbance, mood disturbance, and anxiety; R13.10 Dysphagia, unspecified; Z90.49 Acquired absence of other specified parts of digestive tract; Z87.891 Personal history of nicotine dependence; Z96.641 Presence of right artificial hip joint; Z96.651 Presence of right artificial knee joint; Z98.890 Other specified postprocedural states; Z79.82 Long term (current) use of aspirin; Z79.899 Other long term (current) drug therapy; Z88.5 Allergy status to narcotic agent; Z88.6 Allergy status to analgesic agent
CPT/HCPCS: 0241U; 36415; 71045; 80048; 80053; 80202; 82803; 82947; 83605; 83735; 83880; 84100; 84484; 85025; 87040; 87070; 87205; 93005; 93010; 94640; 94660; 94664; 94762; 96365; 97110; 97161; 97165; 97530; 97535; 99285-25; A9270; J1650; J2543; J3370; J7040; J7050; J7120

== ENCOUNTER 2025-06-04 11:27 | Emergency (ER) | payer OTHER ==
[~2025-06-04] VITALS: Ht 188 cm; Wt 74.8 kg
[~2025-06-04 11:27] MED LIST changes: +ATROPINE S0.4 MG/1 M; +Acetaminophen650 M1 PR; +Acetaminophen650 M1 PT; +BANATROL PLUS1 EAC1 PT; +BISA10S PR; +LORA.5 PO; +MIRALAX1714 PT; +MORP20L PO; +Milk Of Ma400 MG/5 M PT; +TRANSDERM-SCOP1 EA13 TD
[2025-06-04 11:52] VITALS: BP 125/60
[2025-06-04] MEDS ORDERED: BISA10S PR (11:57)
[2025-06-04] MEDS ORDERED: ALEVAZOL56.7 G1 TOP (11:57)
[2025-06-04] MEDS ORDERED: DOCU100 PO (11:57)
[2025-06-04] MEDS ORDERED: LOPE2C PO (11:58)
[2025-06-04] MEDS ORDERED: IBUP200 PO (11:58)
== END 2025-06-04 14:48 | disposition home or self-care (01) ==
LOC: ER 11:27
DX: K94.23 Gastrostomy malfunction (principal); I10 Essential (primary) hypertension; E78.5 Hyperlipidemia, unspecified; R73.03 Prediabetes; J44.9 Chronic obstructive pulmonary disease, unspecified; F03.90 Unspecified dementia, unspecified severity, without behavioral disturbance, psychotic disturbance, mood disturbance, and anxiety; Z87.891 Personal history of nicotine dependence; Z88.5 Allergy status to narcotic agent; Z88.8 Allergy status to other drugs, medicaments and biological substances; Z79.899 Other long term (current) drug therapy
CPT/HCPCS: 43762; 49465; 99283-25; Q9963